=== PATIENT | female | born 1955 | race Caucasian/White ===

== ENCOUNTER → 2018-07-24 | Outpatient (CLI) | payer MEDICARE, OTHER ==
[~2018-07-24] MED LIST: FENTANYL PF 100 MCG/2ML ONE; GADOBUTROL 10 MMOL/10 ML PFS ONE; MIDAZOLAM 1 MG/ML, 5ML ONE
== END | disposition home or self-care (01) ==
LOC: EDSTATUS 09:00 → RAD 09:14
PROVIDERS: ATTEND Psychiatry & Neurology Neurology
DX: D32.9 Benign neoplasm of meninges, unspecified (principal)
CPT/HCPCS: 70543; 70553; 99156; 99157; A9585; J2250; J3010

== ENCOUNTER 2019-05-26 19:23 | Emergency (ER) | payer MEDICARE, OTHER ==
[~2019-05-26] VITALS: Ht 165.1 cm; Wt 95.0 kg
[2019-05-26 19:25] VITALS: BP 118/69
[2019-05-26] MEDS ORDERED: OXYBUTYNIN (19:39)
[2019-05-26] MEDS ORDERED: GLIPIZIDE PO (19:39)
== END 2019-05-26 21:43 | disposition home or self-care (01) ==
LOC: ED 21:35
DX: S93.114A Dislocation of interphalangeal joint of right lesser toe(s), initial encounter (principal); I87.2 Venous insufficiency (chronic) (peripheral); R60.0 Localized edema; X50.1XXA Overexertion from prolonged static or awkward postures, initial encounter; Y93.89 Activity, other specified; Y92.009 Unspecified place in unspecified non-institutional (private) residence as the place of occurrence of the external cause; Y99.8 Other external cause status
CPT/HCPCS: 28660; 93970; 99284